=== PATIENT | female | born 1925 | race Caucasian/White ===

== ENCOUNTER 2016-06-25 18:02 | Emergency (ER) | payer MEDICARE, MEDICAID ==
[2016-06-25] MEDS ORDERED: LIDOCAINE/EPI 1% MDV 20 ML ONE (19:16)
[2016-06-25] MEDS ORDERED: TDaP 0.5 ML VIAL IM.VACC ONE (19:21)
== END 2016-06-25 22:18 | disposition home or self-care (01) ==
LOC: ER 18:02
DX: S02.32XA Fracture of orbital floor, left side, initial encounter for closed fracture (principal); S06.5X0A Traumatic subdural hemorrhage without loss of consciousness, initial encounter; S01.112A Laceration without foreign body of left eyelid and periocular area, initial encounter; W05.0XXA Fall from non-moving wheelchair, initial encounter; Y92.129 Unspecified place in nursing home as the place of occurrence of the external cause; Z23 Encounter for immunization; Z66 Do not resuscitate; I12.9 Hypertensive chronic kidney disease with stage 1 through stage 4 chronic kidney disease, or unspecified chronic kidney disease; N18.3 Chronic kidney disease, stage 3 (moderate); F32.9 Major depressive disorder, single episode, unspecified; Z79.899 Other long term (current) drug therapy
CPT/HCPCS: 70450; 70486; 72072; 72125; 82947; 90471